=== PATIENT | male | born 1965 | race Caucasian/White ===

== ENCOUNTER 2018-07-22 09:27 | Outpatient (CLI) | payer OTHER ==
[2018-07-22 12:42] LABS: eGFR (Non-African) > 60
== END 2018-07-22 09:30 ==
LOC: LAB 09:27
PROVIDERS: ATTEND Family Medicine
DX: Z12.5 Encounter for screening for malignant neoplasm of prostate (principal); Z00.00 Encounter for general adult medical examination without abnormal findings
CPT/HCPCS: 36415; 80053; 80061; G0103